=== PATIENT | female | born 1945 | race Caucasian/White ===

== ENCOUNTER 2018-03-24 06:06 | Day surgery (SDC) | payer OTHER ==
--- NOTE | 2018-03-23 16:05 | RAD REPORT ---
EXAM DESCRIPTION: Silverio Pérez (2 Views)03/23/2018 3:57 pm CLINICAL HISTORY: Hypertension COMPARISON: July 2017 FINDINGS: The lungs appear clear of acute infiltrate. The heart is normal size IMPRESSION: No acute abnormalities displayed
[2018-03-23 17:36] LABS: Absolute Lymphocytes (CBC) 2.3 K/uL (0.7-4.9); Absolute Monocytes 1.1 K/uL (0.1-1.3); Absolute Neutrophil 5.8 K/uL (1.8-8.0); Basophils % 0.6 % (0-1.3); Eosinophils % 2.6 % (0-4.4); Hematocrit 39.7 % (36.0-45.0); MCH 30.9 pg (27.0-35.0); MCV 93.4 fL (80-100); MPV 8.4 fL (7.6-11.3); Monocytes % 11.5 % (3.3-12.3); RBC Red Blood Cell Count 4.25 M/uL (3.86-4.86)
[2018-03-23 17:53] LABS: Potassium 4.1 mmol/L (3.5-5.1)
[2018-03-23 17:59] LABS: Protime INR 0.98
[2018-03-24] MEDS ORDERED: NA CHLORIDE 0.9% 500 ML ONE (06:35)
[2018-03-24] MEDS ORDERED: HEPA 1000U/500MLS 1,000 UNIT/500 ML BAG IV ONE (06:55)
[2018-03-24] MEDS ORDERED: LIDOCAINE 1% MPF 2 ML AMPULE ONE ×2 (06:55→07:31)
[2018-03-24] MEDS ORDERED: FENTANYL CITR 100 MCG/2 ML ONE (07:01)
[2018-03-24] MEDS ORDERED: NA CHLORIDE 0.9% 50 ML ONE (07:01)
[2018-03-24] MEDS ORDERED: MIDAZOLAM HCL 2 MG/2 ML INJ ONE (07:01)
[2018-03-24] MEDS ORDERED: ATROPINE SULF 1 MG/10 ML SYR IV ONE (07:01)
[2018-03-24] MEDS ORDERED: PRASUGREL (EFFIENT) 10 MG TAB ONE (08:04)
[2018-03-24] MEDS ORDERED: ASPIRIN 325 MG TAB ONE (08:04)
[2018-03-24] MEDS ORDERED: NITROGLYCERIN 0.4 MG/TAB SL ONE (08:15)
[2018-03-24] MEDS ORDERED: NITROGLYCERIN 0.4 MG/TAB SL PRN (10:00)
[2018-03-24] MEDS ORDERED: ACETAMINOPHEN 325 MG TABLET PO PRN (10:00)
[2018-03-24] MEDS ORDERED: NA CHLORIDE 0.9% 1,000 ML IV SCH (10:45)
[2018-03-24] MEDS ORDERED: MORPHINE 4 MG/ML SYR IV PRN (10:53)
[2018-03-24] MEDS ORDERED: ONDANSETRON 4 MG/2 ML VIAL IV PRN (10:54)
--- NOTE | 2018-03-24 19:44 | OP ---
Surgeon: Deng Avendano MD The patient admitted to my service as an outpatient for a left heart catheterization. Procedures: Left heart catheterization, selective coronary arteriogram, and primary left anterior de scending stent. Indication For The Procedure: Chest pain and positive Cardiolite. The patient is a 72-year-old woman. She has a history of hypertension, dyslipidemia, admitted for an outpatient heart catheterization. Description Of Procedure: She was brought to the blood bank laboratory technologist as an outpatient, prepped and draped in th e routine sterile fashion, and given 2 mg of Versed for IV sedation. A right common femoral artery a ccess was obtained with a 6-[place] sheath and Angio-Seal was used to close the case. Angiography the re was normal. Diagnostic catheterization with left and right Markos catheter revealed a normal cir cumflex, normal RCA. She had an 80% long mid LAD stenosis. This was consistent with her positive Ca rdiolite. An XBLAD 3.5 guide with side-hole was used. A [place] wire 0.014 exchange length was used to cross the lesion. A 2.5 x 16 Synergy stent was placed at 14 atmospheres over 30 seconds. There w as 0% residual, excellent results. No complication. Estimated Blood Loss: 5 cc. Postoperative Diagnosis: Coronary artery disease, status post successful primary mid left anterior d escending stent The plan is to continue her medical therapy at home, which does include pravastatin at 80 mg daily. The patient did receive Angiomax during the procedure and Effient as well as aspirin. She will stay overnight and go home tomorrow morning. Operators: Deng Avendano M.D. and Yokasta Hewitt. Total conscious sedation was 45 minutes. MAXIMILIAN/GUNJAN Voice ID: [id number] Report ID: [id number]
[2018-03-24] MEDS ORDERED: ATORVASTATIN 10 MG TAB PO SCH (21:00)
[2018-03-24] MEDS ORDERED: ASPIRIN 81 MG CHEWABLE TABLET PO SCH (21:00)
[2018-03-25 04:35] LABS: Absolute Lymphocytes (CBC) 2.3 K/uL (0.7-4.9); Absolute Monocytes 1.3 K/uL (0.1-1.3); Absolute Neutrophil 4.9 K/uL (1.8-8.0); Basophils % 0.3 % (0-1.3); Eosinophils % 2.1 % (0-4.4); Hematocrit 35.3 % (36.0-45.0); Lymphocytes % 26.5 % (15.3-44.8); MCH 31.5 pg (27.0-35.0); MPV 7.8 fL (7.6-11.3); Monocytes % 14.9 % (3.3-12.3); RBC Red Blood Cell Count 3.84 M/uL (3.86-4.86)
[2018-03-25 04:57] LABS: Potassium 3.9 mmol/L (3.5-5.1)
[2018-03-25] MEDS ORDERED: ASPIRIN 81 MG CHEWABLE TABLET PO SCH (09:00)
[2018-03-25] MEDS ORDERED: LISINOPRIL 10 MG TAB PO SCH (09:00)
[2018-03-25] MEDS ORDERED: PRASUGREL (EFFIENT) 10 MG TAB PO SCH (09:00)
--- NOTE | 2018-03-25 12:08 | EKG ---
Test Date: 2018-03-25 Test Time: 08:37:41 Compensation Consulting Manager: MEASUREMENT RESULTS: Intervals: Rate: 64 NH: 168 QRSD: 82 QT: 402 QTc: 414 [place]: P: 45 NH: 168 QRS: 11 T: 47 INTERPRETIVE STATEMENTS: Normal sinus rhythm Low voltage QRS Otherwise normal ECG Compared to ECG 07/31/2017 10:41:55 Sinus bradycardia no longer present criteria for anterior infarct are no longer present Electronically Signed On 03-25-18 12:07:57 CDT by Nacho Tejada
== END 2018-03-25 12:16 | disposition home or self-care (01) ==
LOC: CCL 06:06 → UNDOADMOB 08:56 → 4TH 08:56 → CCL 03-25 12:16
DX: I25.10 Atherosclerotic heart disease of native coronary artery without angina pectoris (principal); I10 Essential (primary) hypertension; E78.5 Hyperlipidemia, unspecified; E78.6 Lipoprotein deficiency
CPT/HCPCS: 36415 ×2; 71046; 80048 ×2; 85025 ×2; 85347 ×2; 85610; 85730; 93005; 93454; C1725; C1760; C1877; C1893; C9600; J0583; J2001 ×2; J2250; J3010

== ENCOUNTER 2024-10-11 09:46 | Emergency (ER) | payer OTHER ==
--- NOTE | 2024-10-11 10:19 | RAD REPORT ---
EXAMINATION: ONE VIEW CHEST XR CLINICAL INDICATION: COUGH TECHNIQUE: Frontal chest projection is submitted. Examination is limited by patient positioning and t echnique. COMPARISON: 03/23/2018 FINDINGS: The lungs are well inflated and clear. The heart is upper limit of normal in size. No displaced fract ures identified. IMPRESSION: No acute intrathoracic abnormalities.
--- NOTE | 2024-10-11 10:28 | RAD REPORT ---
EXAMINATION: US BILATERAL LOWER EXTREMITY VENOUS DOPPLER CLINICAL INDICATION: Pain;Swelling TECHNIQUE: Complete bilateral duplex sonography of the BILATERAL lower extremity veins was performed. The examination included compression for vein patency, color Doppler imaging and flow augmentation in response to distal compression of the distal external iliac, common femoral, femoral, popliteal, t ibial, and great and small saphenous veins. COMPARISON: No prior exam. FINDINGS: Duplex sonography testing of the veins of the BILATERAL lower extremity was performed. Color flow alonzo ging shows all veins to be compressible with [id number] color filling. Pulsatile and phasic flow is present within all lower extremity deep and superficial veins examined. IMPRESSION: There is no deep vein or superficial vein thrombosis.
[2024-10-11 10:47] LABS: Absolute Eosinophils 0.2 K/uL (0-0.5); Absolute Monocytes 1.1 K/uL (0.1-1.3); Absolute Neutrophil 5.8 K/uL (1.8-8.0); Basophils % 0.5 % (0-1.3); Eosinophils % 1.8 % (0-4.4); Hematocrit 45.8 % (36.0-45.0); Hemoglobin 15.1 g/dL (12.0-15.0); Lymphocytes % 21.7 % (15.3-44.8); MCH 31.4 pg (27.0-35.0); MCV 95.2 fL (80-100); MPV 7.4 fL (7.6-11.3); Nucleated Red Blood Cells % 0.1 % (0-0); Platelets 320 thou/uL (152-406); RBC Red Blood Cell Count 4.81 M/uL (3.86-4.86)
[2024-10-11 11:06] LABS: ALT/SGPT 48 U/L (13-56); AST/SGOT 33 U/L (15-37); Albumin 3.3 g/dL (3.4-5.0); Albumin/Globulin Ratio 0.8 (1.1-1.8); Alkaline Phosphatase 73 U/L (45-117); Anion Gap 10.1 mEq/L (5.0-15.0); BUN Blood Urea Nitrogen 29 mg/dL (7-18); Bicarbonate 25 mEq/L (21-32); Bilirubin Total 0.5 mg/dL (0.2-1.0); Globulin 3.9 g/dL (2.3-3.5); Glomerular Filtration Rate 38 ml/min (=/>90); Glucose Level 146 mg/dL (74-106); Lipase 64 U/L (13-75); NT PRO-BNP 27 pg/mL (<450); Potassium 4.1 mEq/L (3.5-5.1); Protein, Total 7.2 g/dL (6.4-8.2); Sodium Level 138 mEq/L (136-145); Troponin High Sensitivity 4.9 pg/mL (<58.9)
[2024-10-11 11:12] LABS: Specific Gravity 1.015 (1.005-1.030); Sqamous Epithelial <5 /HPF (None Seen); Urine Bacteria <20 /HPF (<20); Urine Bilirubin NEGATIVE (Negative); Urine Blood Negative (Negative); Urine Clarity Extremely Turbid (Clear); Urine Color Yellow (Yellow); Urine Culture Reflex Order REFLEXED; Urine Glucose NEGATIVE (Negative); Urine Ketones NEGATIVE (Negative); Urine Microscopic Reflex YN ORDER UMIC; Urine Mucus Slight /HPF (None Seen); Urine Nitrite NEGATIVE (Negative); Urine Protein NEGATIVE (Negative); Urine Urobilinogen Normal (Normal); Urine WBC >50 /HPF (<5); Urine WBC Clump Rare /HPF (None Seen); Urine Yeast (Budding) Trace /HPF (None Seen)
[2024-10-11 11:13] LABS: Protime INR 1.05
[2024-10-11 11:17] LABS: Bilirubin Direct < 0.2 mg/dL (0-0.2); Bilirubin Indirect, Calculated 0.3 mg/dL (0.2-0.8)
[2024-10-11] MEDS ORDERED: CEFTRIAXONE 1000 MG/VIAL ONE (12:59)
--- NOTE | 2024-10-11 13:07 | EDPHYS ---
Physician Documentation [facility] Name: Claudia Holguin Age: 78 yrs Sex: Female : 1945 Arrival Date: 10/11/2024 Time: 09:46 Bed 20 Private MD: ED Physician Lucio Leos HPI: 10/11 13:02 This 78 yrs old Female presents to ER via Wheelchair with complaints of Leg mary Swelling - BL: Sent by pcp. 13:02 The patient presents with pain, swelling. The complaints affect the right leg and left mary leg. Context: resulted from an unknown cause. Onset: The symptoms/episode began/occurred 2 day(s) ago. Modifying factors: The symptoms are alleviated by nothing. the symptoms are aggravated by nothing. Associated signs and symptoms: The patient has no apparent associated signs or symptoms. Treatment prior to arrival includes: no previous treatment. Severity of symptoms: At their worst the symptoms were mild, in the emergency department the symptoms are unchanged. The patient has not experienced similar symptoms in the past. Historical: - Allergies: : No Known Allergies; ap3 - PMHx: : Hypercholesterolemia; Hypertension; "pre-diabetic" (Hypertension); ap3 - Immunization history:: Client reports having NOT received the Covid vaccine. Flu vaccine is up to date. - Infectious Disease History:: Denies. - Social history:: Smoking status: Patient/guardian denies using tobacco, the patient reports quitting approximately 20 years ago. - Family history:: not pertinent. ROS: 13:02 Constitutional: Negative for fever, chills, and weight loss, Eyes: Negative for injury, mary pain, redness, and discharge, ENT: Negative for injury, pain, and discharge, Neck: Negative for injury, pain, and swelling, Cardiovascular: Negative for chest pain, palpitations, and edema, Respiratory: Negative for shortness of breath, cough, wheezing, and pleuritic chest pain, Abdomen/GI: Negative for abdominal pain, nausea, vomiting, diarrhea, and constipation, Back: Negative for injury and pain, : Negative for injury, bleeding, discharge, and swelling, Skin: Negative for injury, rash, and discoloration, Neuro: Negative for headache, weakness, numbness, tingling, and seizure, Psych: Negative for depression, anxiety, suicide ideation, homicidal ideation, and hallucinations, Allergy/Immunology: Negative for hives, rash, and allergies, Endocrine: Negative for neck swelling, polydipsia, polyuria, polyphagia, and marked weight changes, Hematologic/Lymphatic: Negative for swollen nodes, abnormal bleeding, and unusual bruising, 13:02 MS/extremity: Positive for pain, swelling, tenderness, of the right leg and left leg, Exam: 13:02 Constitutional: This is a well developed, well nourished patient who is awake, alert, mary and in no acute distress. Head/Face: Normocephalic, atraumatic. Eyes: Pupils equal round and reactive to light, extra-ocular motions intact. Lids and lashes normal. Conjunctiva and sclera are non-icteric and not injected. Cornea within normal limits. Periorbital areas with no swelling, redness, or edema. ENT: Nares patent. No nasal discharge, no septal abnormalities noted. Tympanic membranes are normal and external auditory canals are clear. Oropharynx with no redness, swelling, or masses, exudates, or evidence of obstruction, uvula midline. Mucous membranes moist. Neck: Trachea midline, no thyromegaly or masses palpated, and no cervical lymphadenopathy. Supple, full range of motion without nuchal rigidity, or vertebral point tenderness. No Meningismus. Chest/axilla: Normal chest wall appearance and motion. Nontender with no deformity. No lesions are appreciated. Cardiovascular: Regular rate and rhythm with a normal S1 and S2. No gallops, murmurs, or rubs. Normal PMI, no JVD. No pulse deficits. Respiratory: Lungs have equal breath sounds bilaterally, clear to auscultation and percussion. No rales, rhonchi or wheezes noted. No increased work of breathing, no retractions or nasal flaring. Abdomen/GI: Soft, non-tender, with normal bowel sounds. No distension or tympany. No guarding or rebound. No evidence of tenderness throughout. Back: No spinal tenderness. No costovertebral tenderness. Full range of motion. Skin: Warm, dry with normal turgor. Normal color with no rashes, no lesions, and no evidence of cellulitis. Neuro: Awake and alert, GCS 15, oriented to person, place, time, and situation. Cranial nerves II-XII grossly intact. Motor strength 5/5 in all extremities. Sensory grossly intact. Cerebellar exam normal. Normal gait. Psych: Awake, alert, with orientation to person, place and time. Behavior, mood, and affect are within normal limits. 13:02 Musculoskeletal/extremity: ROM: intact in all extremities, full active range of motion, full passive range of motion, Circulation is intact in all extremities. Sensation intact. Compartment Syndrome exam of affected extremity: is normal. Joints: All joints appear normal with full range of motion. Weight bearing: able to fully bear weight, DVT Exam: No signs of deep vein thrombosis. no pain, no swelling, no tenderness, negative Homans' sign noted on exam, no appreciated bluish discoloration, no erythema, no increased warmth, 13:08 ECG was reviewed by the Attending Physician. [facility] Vital Signs: 11:25 BP 127 / 75; Pulse 95; Resp 18; Temp 98.5(O); Pulse Ox 96% on R/A; Weight 92.99 kg; ap3 Height 5 ft. 8 in. ; Pain 0/10; 12:10 BP 142 / 79; Pulse 75; Resp 20; Pulse Ox 97% ; kj2 13:14 BP 146 / 71; Pulse 66; Resp 18; Pulse Ox 98% ; kj2 11:25 Body Mass Index 31.17 (92.99 kg, 172.72 cm) ap3 11:25 Pain Scale: Adult ap3 MDM: 09:56 Medical Screening Exam initiated [facility] 11:30 Medical Screening Exam initiated [facility] 13:04 Differential diagnosis: contusion, abrasion, tendonitis. Data reviewed: vital signs, [facility] nurses notes, lab test result(s), EKG, radiologic studies. Consideration of Admission/Observation Escalation of care including admission/observation considered. I considered the following discharge prescriptions or medication management in the emergency department Medications were administered in the Emergency Department. See MAR. Independent interpretation of the following test(s) in the Emergency Department EKG: See my EKG interpretation above. Test considered but Not performed: CT: NO CT ABDOM/PEL. Historians other than the Patient: PT WELL INFORMED. Care significantly affected by the following chronic conditions: Diabetes, Hypertension, Obesity. Counseling: I had a detailed discussion with the patient and/or guardian regarding the historical points, exam findings, and any diagnostic results supporting the discharge/admit diagnosis, lab results, radiology results, the need for outpatient follow up. 10/11 09:57 Order name: Basic Metabolic Panel; Complete Time: 12:47 [facility] 10/11 09:57 Order name: CBC with Diff; Complete Time: 12:47 [facility] 10/11 09:57 Order name: LFT's; Complete Time: 12:47 [facility] 10/11 09:57 Order name: Magnesium; Complete Time: 12:47 [facility] 10/11 09:57 Order name: NT PRO-BNP; Complete Time: 12:47 [facility] 10/11 09:57 Order name: PT-INR; Complete Time: 12:47 [facility] 10/11 09:57 Order name: Troponin HS; Complete Time: 12:47 [facility] 10/11 09:57 Order name: Urinalysis w/ reflexes; Complete Time: 12:47 [facility] 10/11 09:57 Order name: Lipase; Complete Time: 12:47 [facility] 10/11 11:18 Order name: Urine Culture [facility] 10/11 09:57 Order name: XRAY Chest (1 view); Complete Time: 12:47 [facility] 10/11 09:57 Order name: US Extremity Venous W Compression Tim; Complete Time: 12:47 [facility] 10/11 09:57 Order name: Cardiac monitoring; Complete Time: 12:53 [facility] 10/11 09:57 Order name: EKG - Nurse/Tech; Complete Time: 10:57 [facility] 10/11 09:57 Order name: IV Saline Lock; Complete Time: 10:39 [facility] 10/11 09:57 Order name: Labs collected and sent; Complete Time: 10:39 [facility] 10/11 09:57 Order name: O2 Per Protocol; Complete Time: 12:53 [facility] 10/11 09:57 Order name: O2 Sat Monitoring; Complete Time: 12:53 [facility] EC:08 Rate is 94 beats/min. Rhythm is regular. QRS [place] is Normal. [place] interval is normal. QRS mary interval is normal. QT interval is normal. No Q waves. T waves are Normal. No ST changes noted. Clinical impression: NSR w/ Non-specific ST/T Changes and No evidence of ischemia. Interpreted by me. Reviewed by me. Administered Medications: 13:05 Drug: Rocephin IV 1 grams IV at per protocol once; Given slow IV push per pharmacy kj2 instructions Route: IV; Rate: per protocol; Site: right antecubital; 13:36 Follow up: IV Status: Completed infusion; IV Intake: 10ml kj2 13:14 Drug: Ciprofloxacin PO 500 mg PO once Route: PO; kj2 13:36 Follow up: Response: No adverse reaction kj2 Disposition Summary: 10/11/24 13:07 Discharge Ordered Notes: Location: Home mary Problem: new mary Symptoms: have improved mary Condition: Stable mary Diagnosis - Edema, unspecified mary - Chronic kidney disease, unspecified mary - UTI/ Urinary tract infection, site not specified mary Followup: mary - With: Private Physician - When: 2 - 3 days - Reason: Recheck today's complaints, Continuance of care, Re-evaluation by your physician Followup: mary - With: Jonah Littlejohn MD - When: 2 - 3 days - Reason: Recheck today's complaints, Re-evaluation by your physician Followup: mary - With: Renzo Jane MD - When: 2 - 3 days - Reason: Recheck today's complaints, Re-evaluation by your physician Discharge Instructions: - Discharge Summary Sheet mary - Dysuria mary - Edema mary - Urinary Tract Infection, Adult mary - Food Basics for Chronic Kidney Disease mary - Urinary Tract Infection, Adult, [id number] amry - Edema, [id number] mary - Chronic Kidney Disease, Adult, [id number] mary Forms: - Medication Reconciliation Form mary - Antibiotic Education mary - Prescription Opioid Use mary - Patient Portal Instructions [facility] - Leadership Thank You Letter [facility] Prescriptions: - Cipro 250 mg Oral tablet - take 1 tablet ORAL route every 12 hours; 14 tablet; Refills: 0, Product mary Selection Permitted Signatures: Dispatcher [employer] Lucio Givens MD MD cha Prokisch, Amanda RN RN ap3 Paulette Laughlin RN RN kj2 Corrections: (The following items were deleted from the chart) 09:57 09:57 BASIC METABOLIC PANEL+C.LAB.BRZ ordered. EDMS EDMS 09:57 09:57 CBC+H.LAB.BRZ ordered. EDMS EDMS 09:57 09:57 HEPATIC FUNCTION+C.LAB.BRZ ordered. EDMS EDMS 09:57 09:57 MAGNESIUM+C.LAB.BRZ ordered. EDMS EDMS 09:57 09:57 PROBNP+C.LAB.BRZ ordered. EDMS EDMS 09:57 09:57 PROTIME (+INR)+COAG.LAB.BRZ ordered. EDMS EDMS 09:57 09:57 Troponin High Sensitivity+C.LAB.BRZ ordered. EDMS EDMS 09:57 09:57 Urinalysis+U.LAB.BRZ ordered. EDMS EDMS 09: 09:57 LIPASE+C.LAB.BRZ ordered. EDMS EDMS 09:58 09:58 Chest Single View+RAD.RAD.BRZ ordered. EDMS EDMS 09: 09:58 Extrem Venous W Compression Tim+US.RAD.BRZ ordered. EDMS EDMS
--- NOTE | 2024-10-11 13:07 | ER ---
Nurse's Notes [facility] Name: Claudia Holguin Age: 78 yrs Sex: Female : 1945 Arrival Date: 10/11/2024 Time: 09:46 Bed 20 Private MD: Diagnosis: Edema, unspecified;Chronic kidney disease, unspecified;UTI/ Urinary tract infection, site not specified Presentation: 10/11 11:25 Chief complaint: Patient states: she noticed yesterday that both legs were blue in ap3 color and swollen. patient reports the legs were not painful. Coronavirus screen: At this time, the client does not indicate any symptoms associated with coronavirus-19. Ebola Screen: No symptoms or risks identified at this time. Initial Sepsis Screen: Does the patient meet any 2 criteria? HR > 90 bpm. Does the patient have a suspected source of infection? No. Patient's initial sepsis screen is negative. Risk Assessment: Do you want to hurt yourself or someone else? Patient reports no desire to harm self or others. Onset of symptoms was October 10, 2024. 11:25 Method Of Arrival: Wheelchair ap3 11:25 Acuity: BERT 3 ap3 Triage Assessment: : General: Appears in no apparent distress. Behavior is calm, cooperative, appropriate ap3 for age. Pain: Denies pain. Neuro: Level of Consciousness is awake, alert, obeys commands, Oriented to person, place, time, situation. Cardiovascular: Pulses are palpable in right dorsalis pedis artery and left dorsalis pedis artery. Respiratory: Airway is patent Respiratory effort is even, unlabored, Respiratory pattern is regular, symmetrical. Historical: - Allergies: : No Known Allergies; ap3 - PMHx: : Hypercholesterolemia; Hypertension; "pre-diabetic" (Hypertension); ap3 - Immunization history:: Client reports having NOT received the Covid vaccine. Flu vaccine is up to date. - Infectious Disease History:: Denies. - Social history:: Smoking status: Patient/guardian denies using tobacco, the patient reports quitting approximately 20 years ago. - Family history:: not pertinent. Screenin:28 [facility] ED Fall Risk Assessment (Adult) History of falling in the last 3 months, ap3 including since admission No falls in past 3 months (0 pts) Confusion or Disorientation No (0 pts) Intoxicated or Sedated No (0 pts) Impaired Gait Yes (1 pt) Mobility Assist Device Used Yes (1 pt) Altered Elimination No (0 pt) Score/Fall Risk Level 0 - 2 = Low Risk Oriented to surroundings, Maintained a safe environment, Educated pt \\T\\ family on fall prevention, incl call for assistance when getting out of bed, Assessed \\T\\ reinforced patient's understanding of fall precautions, Hourly rounding (assess needs \\T\\ fall precautionary measures) done, Used ambulatory aids as needed (educated on \\T\\ assisted with), Used gait belt as appropriate. Abuse screen: Denies threats or abuse. Nutritional screening: No deficits noted. Tuberculosis screening: No symptoms or risk factors identified. Assessment: 12:10 General: Appears in no apparent distress. Behavior is calm, cooperative. Pain: Denies kj2 pain. Neuro: Level of Consciousness is awake, alert, obeys commands, Oriented to person, place, time, situation. Cardiovascular: Patient's skin is warm and dry. Respiratory: Airway is patent Respiratory effort is unlabored. GI: No deficits noted. : No deficits noted. 13:23 Reassessment: Patient appears in no apparent distress at this time. Patient and/or kj2 family updated on plan of care and expected duration. Pain level reassessed. Patient is alert, oriented x 3, equal unlabored respirations, skin warm/dry/pink. Vital Signs: 11:25 BP 127 / 75; Pulse 95; Resp 18; Temp 98.5(O); Pulse Ox 96% on R/A; Weight 92.99 kg; ap3 Height 5 ft. 8 in. ; Pain 0/10; 12:10 BP 142 / 79; Pulse 75; Resp 20; Pulse Ox 97% ; kj2 13:14 BP 146 / 71; Pulse 66; Resp 18; Pulse Ox 98% ; kj2 11:25 Body Mass Index 31.17 (92.99 kg, 172.72 cm) ap3 11:25 Pain Scale: Adult ap3 ED Course: 09:54 Patient arrived in ED. ra3 09:56 Lucio Leos MD is Attending Physician. mary 10:11 XRAY Chest (1 view) In Process Unspecified. EDMS 10:26 US Extremity Venous W Compression Tim In Process Unspecified. EDMS 10:39 Lipase Sent. bc6 10:39 Basic Metabolic Panel Sent. bc6 10:39 CBC with Diff Sent. bc6 10:39 LFT's Sent. bc6 10:39 Magnesium Sent. bc6 10:39 NT PRO-BNP Sent. bc6 10:39 PT-INR Sent. bc6 10:39 Troponin HS Sent. bc6 10:39 Initial lab(s) drawn, by ar, sent to lab. Inserted saline lock: 20 gauge in right 6 antecubital area, using aseptic technique. Blood collected. Flushed with 10 mL NS. 10:58 EKG done, by ED staff, reviewed by Lucio Leos MD. bc6 11:27 Triage completed. ap3 11:28 Arm band placed on right wrist. ap3 11:31 Urine Culture Sent. bc6 12:22 Paulette Laughlin, POONAM is Primary Nurse. kj2 12:35 Patient has correct armband on for positive identification. Bed in low position. Call kj2 light in reach. Adult w/ patient. Provided Education on: call light. 13:06 Jonah Littlejohn MD is Referral Physician. [facility] 13:06 Renzo Jane MD is Referral Physician. [facility] 13:28 No provider procedures requiring assistance completed. IV discontinued, intact, kj2 bleeding controlled, No redness/swelling at site. Pressure dressing applied. Administered Medications: 13:05 Drug: Rocephin IV 1 grams IV at per protocol once; Given slow IV push per pharmacy kj2 instructions Route: IV; Rate: per protocol; Site: right antecubital; 13:36 Follow up: IV Status: Completed infusion; IV Intake: 10ml kj2 13:14 Drug: Ciprofloxacin PO 500 mg PO once Route: PO; kj2 13:36 Follow up: Response: No adverse reaction kj2 Medication: 13:28 VIS not applicable for this client. kj2 Intake: 13:36 IV: 10ml; Total: 10ml. kj2 Outcome: 13:07 Discharge ordered by . mary 13:28 Discharged to home ambulatory, kj2 13:28 Condition: stable 13:28 Discharge instructions given to patient, Instructed on discharge instructions, follow up and referral plans. medication usage, Demonstrated understanding of instructions, follow-up care, medications, 13:34 Patient left the ED. kj2 Signatures: Dispatcher [employer] EDLucio Lozano MD MD cha Prokisch, Amanda RN RN ap3 Cee Rodriguez bc6 Rizwana Richter ra3 Paulette Laughlin, POONAM RN kj2
[2024-10-11] MEDS ORDERED: CIPROFLOXACIN HCL 500 MG TAB ONE (13:12)
[2024-10-11 15:51] VITALS: TEMP 98.5
[2024-10-11 15:58] VITALS: BP 146/71; O2SAT 98
== END 2024-10-11 13:34 | disposition home or self-care (01) ==
LOC: ER 09:46
DX: R60.9 Edema, unspecified (principal); N39.0 Urinary tract infection, site not specified; I12.9 Hypertensive chronic kidney disease with stage 1 through stage 4 chronic kidney disease, or unspecified chronic kidney disease; N18.9 Chronic kidney disease, unspecified
CPT/HCPCS: 87088; 85025; 81001; 87086; 80048; 36415; 83735; 85610; 80076; 84484; 83690; 83880; 71045; 93970; J0696; 96365; 99284